=== PATIENT | female | born 2000 | race Caucasian/White ===

== ENCOUNTER 2023-03-08 15:48 | Outpatient (CLI) | payer OTHER, SELFPAY ==
--- NOTE | 2023-03-08 16:00 | CRLHL7_ITS ---
For Patients: As a result of the Century Cures Act, medical imaging exams and procedure reports are released immediately into your electronic medical record. You may view this report before your referring provider. If you have questions, please contact your health care provider. CLINICAL HISTORY: Dysmenorrhea, left ovarian pain TECHNIQUE: 2D hoffmann scale ultrasound. In addition color Doppler and spectral Doppler analysis was performed of the pelvis using a transabdominal and transvaginal approach. FINDINGS: The myometrium has a normal uniform echotexture and measures 7.0 x 2.7 x 4.4 cm. The endometrial lining appears normal and measures 5 mm in thickness. The right ovary measures 2.7 x 1.8 x 2.1 cm in size and the left ovary measures 2.5 x 1.3 x 1.6 cm. The ovaries demonstrate normal arterial and venous blood flow on color Doppler and spectral Doppler analysis. There are no suspicious fluid collections within the cul-de-sac. IMPRESSION: Normal pelvic ultrasound. No ovarian torsion. Left ovary is normal. Dictated by Fredy Cohen MD @ 03/09/2023 9:11:53 AM (Electronically Signed)
== END 2023-03-08 15:49 | disposition home or self-care (01) ==
LOC: US 15:48
PROVIDERS: PCP Physician Assistant Medical; Visit Provider Obstetrics & Gynecology
DX: N94.6 Dysmenorrhea, unspecified (principal); R10.2 Pelvic and perineal pain
CPT/HCPCS: 76830; 76856; 93976

== ENCOUNTER 2023-03-21 06:03 | Day surgery (SDC) | payer OTHER, SELFPAY ==
[2023-03-21] VITALS (12 sets, daily range): BP systolic 110–132; BP diastolic 71–86; PULSE 65–92; RESP 16–20; TEMP 36.2–37.3; O2SAT 97–100; BMI 24.2
[2023-03-21 06:25] LABS: Ur HCG Qualitative* Negative (Negative)
[2023-03-21] MEDS: LACTATED RINGERS 1000 ML 1,000 ML 100 ML IV ×2 (06:40→08:10)
[2023-03-21] MEDS: SODIUM CHLORIDE 0.9 % (FLUSH) 10 ML SYRINGE IVF (06:40)
--- NOTE | 2023-03-21 07:24 | P.GYNPRC_ITS ---
Procedure Note Date Seen: 03/21/23 Procedure Details: PREOPERATIVE DIAGNOSES: 1. Severe dysmenorrhea. 2. Menorrhagia. POSTOPERATIVE DIAGNOSES: 1. Severe dysmenorrhea. 2. Menorrhagia. PROCEDURE: 1. Diagnostic laparoscopy. SURGEON: Lisa DOG FOOD DOUGH MIXER: Renan. ANESTHESIA: General endotracheal. COMPLICATIONS: None. ESTIMATED BLOOD LOSS: <10 mL. FINDINGS: Normal appearing uterus, ovaries, fallopian tubes, appendix, liver and gallbladder. No evidence of endometriosis or pelvic adhesive disease. DESCRIPTION OF PROCEDURE: After obtaining informed consent, the patient was taken to the operating room where general anesthesia was obtained without difficulty. She was prepared and draped in the normal sterile fashion in the low dorsal lithotomy position. A Tyson catheter was inserted into the bladder and left to gravity drainage. A medium Graves open-sided speculum was int roduced into the vagina. The cervix was visualized and grasped along its anterior lip with a single-toothed tenaculum. A Saavn uterine manipulator was placed without difficulty. The Allis tenaculum and speculum were removed. I then changed gloves and my attention was turned to the abdomen. The inferior aspect of the umbilical fold was injected with 0.5% Marcaine plain. A 5 mm vertical incision was then made within the umbilical fold using a scalpel. The subcutaneous tissues were bluntly dissected with a Keri clamp to the fascia. A direct entry technique was used to place a 5 mm laparoscopic port with CO2 gas set to a 5 mmHg. The trocar was removed leaving the sleeve in place. The CO2 gas flow was turned to high flow to achieve pneumoperitoneum. The 5 mm laparoscope was used then to carefully inspect the abdomen. It was apparent that the port was through the omentum, tehering it to the anterior abdominal wall. The port balloon was deflated and the omentum fell away. The balloon was re-inflated. Pictures were taken for documentation purposes. The patient was placed in Trendelenburg positioning. An additional 5 mm port was placed in the right lower quadrant under direct visualization after first anesthetizing the skin and fascia with 0.5% Marcaine plain. The uterus was elevated using the uterine manipulator. The bowels were gently pushed from the pelvis cephalad. The abdomen and pelvis were carefully inspected. Findings were normal. All instruments were then removed under direct visualization. Pneumoperitoneum was allowed to escape. The skin at both port sites was closed in a subcuticular fashion with 4-0 Monocryl. Surgical glue was then placed over the incisions. The uterine manipulator and Tyson catheter were removed. The patient tolerated the procedure well. Sponge, lap, and needle counts were correct x2. The patient was taken to the recovery room awake and in stable condition.
[2023-03-21] MEDS: BUPIVACAINE 0.5% 30 ML 8 ML INJECTION (07:55)
--- NOTE | 2023-03-21 08:16 | SUR.OPER ---
PATIENT QUESTIONS ANSWERED SATISFACTORILY PREOPERATIVELY. PATIENT BROUGHT TO OR #4 PER CART. Patient positioned supine on OR #4 bed for the intubation. Pt. legs then moved into the lithotomy position for the procedure. CHEST STRAP, BILATERAL ARMS PADDED AND TUCKED IN A NEUTRAL POSITION. Final approval of positioning by surgeon.
--- NOTE | 2023-03-21 08:21 | PM.PROC ---
Procedure Note Time Seen by Provider: 08:21 Date Seen: 03/21/23 Date of procedure: 03/21/23 Will [facility] bill your pro fee for this procedure?: Yes Procedure: assistant strength coach op note: Preoperative diagnosis: 22-year-old with severe dysmenorrhea Postoperative diagnosis: Same, normal pelvic anatomy Procedure: Diagnostic Laparoscopy Operative note: I was asked to assist Dr. Gonzalez with the patient's surgery. I aided in dissection, visualization, and obtaining hemostasis. Please see Dr. Gonzalez note for complete details.
--- NOTE | 2023-03-21 09:42 | W.ANESCHARGE ---
Anesthesia Charges Start Date/Time Anesthesia Start Date: 03/21/23 Anesthesia Start Time: 07:26 Stop Date/Time Anesthesia Stop Date: 03/21/23 Anesthesia Stop Time: 08:30
--- NOTE | 2023-03-21 11:43 | W.ANESCHARGE ---
Anesthesia Charges Start Date/Time Anesthesia Start Date: 03/21/23 Anesthesia Start Time: 07:26 Stop Date/Time Anesthesia Stop Date: 03/21/23 Anesthesia Stop Time: 08:30
== END 2023-03-21 10:29 | disposition home or self-care (01) ==
PROVIDERS: PCP Physician Assistant Medical; Visit Provider Obstetrics & Gynecology
PROC: (CPT 49320; principal; 2023-03-21 07:15)
DX: N94.6 Dysmenorrhea, unspecified (principal); N92.0 Excessive and frequent menstruation with regular cycle
CPT/HCPCS: 49320; 00840; 81025; J0330; J1100; J2250; J2405; J2704; J3010; J3490; J7120

== ENCOUNTER 2023-06-30 12:33 | Outpatient (CLI) | payer OTHER, SELFPAY | END 2023-06-30 12:34 | disposition home or self-care (01) | LOC: RAD 12:34 | PROVIDERS: PCP Physician Assistant Medical; Visit Provider Family Medicine | DX: R00.0 Tachycardia, unspecified (principal) | CPT/HCPCS: 93306 ==

== ENCOUNTER 2025-09-08 12:16 | Outpatient (CLI) | payer BC, SELFPAY ==
[2025-09-08 12:19] VITALS: BP 129/78; PULSE 80; TEMP 36.3
--- NOTE | 2025-09-08 13:31 | PC.OBNST ---
NST Note NST Note Start: 09/08/25 12:21 Freq: ONCE Status: Active Protocol: Document 09/08/25 13:30 ALZ (Rec: 09/08/25 13:31 ALZ No Response) NST Note 1 Para (# of births) 0 EDC 12/30/25 Gestational Age In 23 Weeks & 6 Days Weeks & Days Patient Presented Pain with Complaint(s) of If Pain, describe left lower abdominal pain location Reactive Yes Appropriate for Yes Gestational Age CARMEL Guzman RN Date 09/08/25 Reactive Yes Appropriate for Yes Gestational Age CARMEL Kohler RN Date 09/08/25 OB NST charge Yes Complete NST Note Yes via Write Note The provider's electronic signature indicates the NST is reactive/appropriate for gestational age. *Note to provider: If an addendum is required, open the patient's chart and click on the note under the Nurse/Allied Health tab.
== END 2025-09-08 13:16 | disposition home or self-care (01) ==
LOC: OB OUT 12:17 → OB 12:18
PROVIDERS: PCP Physician Assistant Medical; Visit Provider Family Medicine
DX: O26.892 Other specified pregnancy related conditions, second trimester (principal); R10.32 Left lower quadrant pain; Z3A.23 23 weeks gestation of pregnancy
CPT/HCPCS: 59025; G0463